=== PATIENT | male | born 2000 | race Hispanic/Latino ===

== ENCOUNTER 2022-12-12 10:27 | Emergency (ER) | payer OTHER ==
[2022-12-12] MEDS ORDERED: HYDROCODONE/APAP 5/325 MG TAB ONE (11:16)
[2022-12-12] MEDS ORDERED: TDAP (DIPHTH,PERTUSS(ACELL),TET VAC) 0.5 ML VIAL IMVAC ONE (11:18)
--- NOTE | 2022-12-12 11:46 | RAD REPORT ---
EXAM DESCRIPTION: RAD - Hand Left 3 View - 12/12/2022 11:38 am CLINICAL HISTORY: Pain;Smash injury COMPARISON: No comparisons FINDINGS/IMPRESSION: No acute fracture. No malalignment. No significant focal degenerative changes.
--- NOTE | 2022-12-12 12:10 | ER ---
Nurse's Notes [facility] Name: Roby Saha Age: 22 yrs Sex: Male : 2000 Arrival Date: 12/12/2022 Time: 10:27 Bed 9 Private MD: Diagnosis: Contusion of left hand;Abrasion of left hand Presentation: 12/12 10:50 Chief complaint: Patient states: L index finger pain after smashing it with hammer. ss Coronavirus screen: Client denies travel out of the [place] in the last 14 days. Ebola Screen: Patient denies exposure to infectious person. Patient denies travel to an Ebola-affected area in the 21 days before illness onset. Initial Sepsis Screen: Does the patient meet any 2 criteria? No. Patient's initial sepsis screen is negative. Does the patient have a suspected source of infection? No. Patient's initial sepsis screen is negative. Risk Assessment: Do you want to hurt yourself or someone else? Patient reports no desire to harm self or others. Onset of symptoms was December 12, 2022. 10:50 Method Of Arrival: Ambulatory ss 10:50 Acuity: ADITYA 4 ss Historical: - Allergies: 10:51 No Known Allergies; ss - Home Meds: 10:51 None [Active]; ss - PMHx: 10:51 None; ss - PSHx: 10:51 None; ss - Immunization history:: Last tetanus immunization: unknown. - Social history:: Smoking status: Patient denies any tobacco usage or history of. Screenin:52 [facility] ED Fall Risk Assessment (Adult) History of falling in the last 3 months, ss including since admission No falls in past 3 months (0 pts). Abuse screen: Denies threats or abuse. Denies injuries from another. Nutritional screening: No deficits noted. Tuberculosis screening: Never had TB. Assessment: 10:52 General: Appears in no apparent distress. comfortable, Behavior is calm, cooperative. ss Pain: Complains of pain in dorsal aspect of proximal phalanx of left index finger Pain currently is 4 out of 10 on a pain scale. at worst was 8 out of 10 on a pain scale. Quality of pain is described as tender, throbbing, Is continuous. Neuro: Level of Consciousness is awake, alert, obeys commands. Respiratory: Airway is patent Respiratory effort is even, unlabored, Respiratory pattern is regular, symmetrical. GI: Patient currently denies nausea, vomiting. Derm: Skin is intact, is healthy with good turgor, Skin is dry, Skin is pink, warm \T\ dry. normal. 12:26 Reassessment: left index finger wound cleaned with Hibiclens and water, dressed with aa5 Neosporin and finger splint. . 12:30 Reassessment: Patient is alert, oriented x 3, equal unlabored respirations, skin aa5 warm/dry/pink. Vital Signs: 10:50 BP 141 / 87; Pulse 92; Resp 16; Temp 98.6(TE); Pulse Ox 97% on R/A; Weight 76.2 kg; ss Height 5 ft. 7 in. ; Pain 4/10; 10:50 Body Mass Index 26.31 (76.20 kg, 170.18 cm) ss 10:50 Pain Scale: Adult ss ED Course: 10:33 Patient arrived in ED. im 10:34 Jennifer Gay FNP-C [facility]. snw 10:34 Augustine Herron MD is Attending Physician. snw 10:50 Angela Trent RN is Primary Nurse. ss 10:51 Triage completed. ss 10:51 Arm band placed on right wrist. ss 10:52 Patient has correct armband on for positive identification. Bed in low position. ss 11:39 Hand Left 3 View XRAY In Process Unspecified. EDMS 12:34 No provider procedures requiring assistance completed. Patient did not have IV access aa5 during this emergency room visit. Administered Medications: 11:16 Drug: Boostrix Tdap IM 0.5 ml {Note: 4547C 05/22/23.} Route: IM; Site: right deltoid; ss 11:56 Follow up: Response: No adverse reaction ss 11:16 Drug: HYDROcodone-acetaminophen PO 5 mg-325 mg 1 tabs Route: PO; ss 11:56 Follow up: Response: No adverse reaction ss Medication: 10:52 VIS not applicable for this client. ss Outcome: 12:10 Discharge ordered by . snw 12:34 Discharged to home ambulatory, with family. aa5 12:34 Condition: stable 12:34 Discharge instructions given to patient, Instructed on discharge instructions, follow up and referral plans. medication usage, Demonstrated understanding of instructions, follow-up care, medications, Prescriptions given X 1. 12:35 Patient left the ED. aa5 Signatures: Dispatcher [employer] EDMS Jennifer Gay, ENDOSCOPY TECHNICIAN-C ENDOSCOPY TECHNICIAN-Mikew Rica Almeida, RN RN aa5 Angela Huerta RN RN Tashia Carver
--- NOTE | 2022-12-12 12:10 | EDPHYS ---
Physician Documentation [facility] Name: Roby Saha Age: 22 yrs Sex: Male : 2000 Arrival Date: 12/12/2022 Time: 10:27 Bed 9 Private MD: ED Physician Augustine Herron HPI: 12/12 10:49 This 22 yrs old Male presents to ER via Unassigned with complaints of Smashed snw his finger with a hammer. 10:49 Onset: The symptoms/episode began/occurred suddenly, just prior to arrival. Associated snw signs and symptoms: Pertinent positives: swelling, tenderness to left index finger s/p smashing it with a hammer. The patient has not experienced similar symptoms in the past. The patient has not recently seen a physician. Historical: - Allergies: 10:51 No Known Allergies; ss - Home Meds: 10:51 None [Active]; ss - PMHx: 10:51 None; ss - PSHx: 10:51 None; ss - Immunization history:: Last tetanus immunization: unknown. - Social history:: Smoking status: Patient denies any tobacco usage or history of. ROS: 10:49 Constitutional: Negative for fever, chills, and weight loss, Eyes: Negative for injury, snw pain, redness, and discharge. 10:49 MS/extremity: Positive for contusion, laceration, pain, swelling, of the dorsal aspect of proximal phalanx of left index finger. Exam: 10:48 Constitutional: This is a well developed, well nourished patient who is awake, alert, snw and in no acute distress. 10:48 Musculoskeletal/extremity: ROM: limited active range of motion due to pain, in the dorsal aspect of proximal phalanx of left index finger, Circulation is intact in all extremities. Sensation intact. small 1cm laceration to dorsal left index finger Vital Signs: 10:50 BP 141 / 87; Pulse 92; Resp 16; Temp 98.6(TE); Pulse Ox 97% on R/A; Weight 76.2 kg; ss Height 5 ft. 7 in. ; Pain 4/10; 10:50 Body Mass Index 26.31 (76.20 kg, 170.18 cm) 10:50 Pain Scale: Adult ss MDM: 10:37 Patient medically screened. snw 12:11 Differential diagnosis: fx, contusion. Data reviewed: vital signs, nurses notes. I snw considered the following discharge prescriptions or medication management in the emergency department Medications were administered in the Emergency Department. See MAR. Counseling: I had a detailed discussion with the patient and/or guardian regarding: the historical points, exam findings, and any diagnostic results supporting the discharge/admit diagnosis, radiology results, to return to the emergency department if symptoms worsen or persist or if there are any questions or concerns that arise at home. Special discussion: I have referred the patient to see his PCP for further evaluation of high blood pressure. Based on the history and exam findings, there is no indication for further emergent testing or inpatient evaluation. I discussed with the patient/guardian the need to see the primary care provider for further evaluation of the symptoms. 12/12 10:48 Order name: Hand Left 3 View XRAY; Complete Time: 11:48 snw 12/12 12:11 Order name: Splint - Finger; Complete Time: 12:33 snw 12/12 12:11 Order name: Wound Care; Complete Time: 12:33 snw Administered Medications: 11:16 Drug: Boostrix Tdap IM 0.5 ml {Note: 4547C 05/22/23.} Route: IM; Site: right deltoid; ss 11:56 Follow up: Response: No adverse reaction ss 11:16 Drug: HYDROcodone-acetaminophen PO 5 mg-325 mg 1 tabs Route: PO; ss 11:56 Follow up: Response: No adverse reaction ss Disposition: 11:30 Co-signature as Attending Physician, Augustine Herron MD I reviewed the patient's care rn provided by the Advanced Practice Provider and agree with the diagnosis and treatment plan. Disposition Summary: 12/12/22 12:10 Discharge Ordered Location: Home snw Condition: Stable snw Diagnosis - Contusion of left hand snw - Abrasion of left hand snw Followup: snw - With: Emergency Department - When: As needed - Reason: Worsening of condition Followup: snw - With: Private Physician - When: 1 week - Reason: Recheck today's complaints, Continuance of care, Re-evaluation by your physician Discharge Instructions: - Discharge Summary Sheet snw - Abrasion snw - Cast or Splint Care, Adult snw - Hand Contusion snw Forms: - Medication Reconciliation Form snw - Thank You Letter snw - Antibiotic Education snw - Prescription Opioid Use snw - Work release form aa5 Prescriptions: - Mobic 7.5 mg Oral Tablet - take 1 tablet by ORAL route once daily take with food; 20 tablet; Refills: 0, snw Product Selection Permitted Signatures: Dispatcher [employer] EDJennifer Ribera, BRADY-C DISK SHARPENER-Csnw Augustine Herron MD MD rn Blanchard, Shelby, RN RN ss
[2022-12-12 13:02] VITALS: BP 141/87; TEMP 98.6; O2SAT 97
== END 2022-12-12 12:35 | disposition home or self-care (01) ==
LOC: ER 10:27
DX: S60.512A Abrasion of left hand, initial encounter (principal)
CPT/HCPCS: 96372; 99284